=== PATIENT | female | born 1970 | race Caucasian/White ===

== ENCOUNTER → 2016-09-20 | Outpatient (CLI) | payer BC ==
[~2016-09-20] MED LIST: CETI10CA11 PO; LANS30CA17 PO; OXYB5POW MC
--- NOTE | 2016-09-21 00:39 | KCIC ---
PROCEDURE Cervical spine MRI without contrast. HISTORY Sudden onset hand numbness and paresthesia. TECHNIQUE Multiplanar and multi sequence magnetic resonance imaging of the cervical spine was performed without contrast. COMPARISON None. FINDINGS There is slight reversal of cervical lordosis centered at the lower cervical levels. There is no significant listhesis. The vertebral bodies are normal in height. There is mild endplate remodeling at multiple levels, predominately C6 and C7. No suspicious osseous lesion is seen. No spinal cord lesion is seen. At C2-C3, there is a minimal disc bulge. There is no stenosis. At C3-C4, there is a minimal left paracentral to foraminal disc protrusion superimposed on a disc bulge and endplate remodeling. There is no stenosis. At C4-C5, there is a minimal disc bulge. There is no stenosis. At C5-C6, there is a minimal disc bulge. There is no stenosis. At C6-C7, there is a broad-based posterior central to right paracentral disc protrusion superimposed on a disc bulge and endplate remodeling. This slightly flattens the ventral aspect of the spinal cord without significant stenosis. IMPRESSION Multilevel degenerative change within the cervical spine, described above. No significant foraminal or central canal stenosis is seen. Electronically signed by: Reyna Doe (Sep 21, 2016 00:38:09)
== END | disposition home or self-care (01) ==
LOC: KCIC MRI 16:45
PROVIDERS: ATTEND Physical Medicine & Rehabilitation
DX: M50.223 Other cervical disc displacement at C6-C7 level (principal); M47.892 Other spondylosis, cervical region; R20.0 Anesthesia of skin
CPT/HCPCS: 72141

== ENCOUNTER → 2016-09-30 | Outpatient (CLI) | payer BC ==
[2016-09-30 08:34] LABS: CREATININE 0.6 mg/dL (0.6-1.0); GFR 107.6
[2016-09-30 14:32] LABS: RHEUMATOID FACTOR <10.0 IU/mL (0.0-13.9)
== END | disposition home or self-care (01) ==
LOC: LAB 06:03
PROVIDERS: ATTEND Psychiatry & Neurology Neurology
DX: G60.9 Hereditary and idiopathic neuropathy, unspecified (principal)
CPT/HCPCS: 36415; 82550; 82565; 82607; 84443; 84450; 84460; 84520; 85651; 86431

== ENCOUNTER → 2017-09-14 | Outpatient (CLI) | payer BC, OTHER | END | disposition home or self-care (01) | LOC: KCIC MAMMO 10:12 | DX: Z12.31 Encounter for screening mammogram for malignant neoplasm of breast (principal) | CPT/HCPCS: 77063; G0202 ==

== ENCOUNTER → 2018-01-18 | Outpatient (CLI) | payer OTHER, BC ==
[2018-01-18 07:30] LABS: ADD MAN DIFF? NO
[2018-01-18 07:32] LABS: BASO % 1 % (0-3); EOS # 0.2 x10^3/uL (0.0-0.7); EOS % 3 % (0-3); HEMATOCRIT 39.9 % (36.0-47.0); HEMOGLOBIN 13.7 g/dL (12.0-15.5); LYMPH # 2.4 x10^3/uL (1.0-4.8); LYMPH % 35 % (24-48); MEAN CORPUSCULAR HEMOGLOBIN 31 pg (25-35); MEAN CORPUSCULAR HGB CONC 34 g/dL (31-37); MEAN CORPUSCULAR VOLUME 91 fL (79-100); MONO # 0.6 x10^3/uL (0.0-1.1); MONO % 9 % (0-9); NEUT # 3.6 x10^3uL (1.8-7.7); NEUT % 53 % (31-73); PLATELET COUNT 215 x10^3/uL (140-400); RED BLOOD COUNT 4.37 x10^6/uL (3.50-5.40); RED CELL DISTRIBUTION WIDTH 13.7 % (11.5-14.5); WHITE BLOOD COUNT 6.8 x10^3/uL (4.0-11.0)
[2018-01-18 07:47] LABS: ALBUMIN 3.8 g/dL (3.4-5.0); ALK PHOS 64 U/L (46-116); ALT (SGPT) 32 U/L (14-59); ANION GAP 11 (6-14); AST (SGOT) 23 U/L (15-37); BLOOD UREA NITROGEN 19 mg/dL (7-20); BUN/CREATININE RATIO 38 (6-20); CALCIUM 8.7 mg/dL (8.5-10.1); CARBON DIOXIDE 24 mmol/L (21-32); CHLORIDE 104 mmol/L (98-107); CHOLESTEROL 170 mg/dL (0-200); CREATININE 0.5 mg/dL (0.6-1.0); GFR 132.2; GLUCOSE 104 mg/dL (70-99); HDLC 42 mg/dL (40-60); LDLC 116 mg/dL (0-100); NON-HDL CHOLESTEROL 128 mg/dL (0-129); SODIUM 139 mmol/L (136-145); TOTAL BILIRUBIN 0.7 mg/dL (0.2-1.0); TOTAL PROTEIN 7.5 g/dL (6.4-8.2); TRIGLYCERIDES 58 mg/dL (0-150); VLDLC 12 mg/dL (0-40)
[2018-01-18 07:58] LABS: THYROID STIM HORMONE (TSH) 2.011 uIU/mL (0.358-3.74)
[2018-01-18 07:59] LABS: VITAMIN-B12 500 pg/mL (247-911)
[2018-01-18 23:12] LABS: HEMOGLOBIN A1C 5.6 % (4.8-5.6)
[2018-01-21 19:10] LABS: METHYLMALONIC ACID 97 nmol/L (0-378)
== END | disposition home or self-care (01) ==
LOC: LAB 06:40
DX: Z13.1 Encounter for screening for diabetes mellitus (principal); Z13.220 Encounter for screening for lipoid disorders; Z79.899 Other long term (current) drug therapy
CPT/HCPCS: 36415; 80053; 80061; 82607; 83036; 83921; 84443; 85025

== ENCOUNTER → 2018-06-29 | Day surgery (SDC) | payer OTHER, BC ==
[~2018-06-29] MED LIST changes: +ESOM20CA PO; +GABA-587 PO; +IV RINGERS,LACTATED 1000ML 1,000 ML IV SCH; -LANS30CA17 PO; +LANS30CA66 PO; +LIDOCAINE 1% PF 2 ML VIAL. ID PRN; +LIDOCAINE 2% PF 2ML VIAL. ONE; +MELO15TA6 PO; +ONDANSETRON PF 4 MG/2 ML VIAL. IV PRN; +OXYB10TA7 PO; +PROCHLORPERAZINE 10 MG/2 ML VIAL. IV PRN; +PROPOFOL 20 ML IV ONE; +fentaNYL PF VIAL 100 MCG/2 ML VIAL IV PRN
[2018-06-29 07:40] VITALS: BP 136/62
--- NOTE | 2018-06-29 07:42 | HP ---
ADMIT DATE: 06/29/2018 REFERRING PHYSICIAN: Dr. Mariann De La Cruz. REASON: Refractory heartburn. HISTORY OF PRESENT ILLNESS: A 47-year-old female with past medical history significant for anemia, hiatal hernia, as well as osteoarthrosis, status post cholecystectomy, seen with persistent symptoms. She has had increased difficulties despite Nexium 40 mg daily. She does use alcohol infrequently and caffeine but no nicotine, but no dysphagia, odynophagia. Heartburn does awaken her at night, there has been no bleeding. With continued symptoms, requests additional evaluation. PAST MEDICAL HISTORY: Anemia, hiatal hernia, she is 2, para 2, history of colonic polyps, GERD. ALLERGIES: ERYTHROMYCIN, TRAMADOL. MEDICATIONS: Include cetirizine, Nexium, gabapentin, meloxicam, and oxybutynin. FAMILY HISTORY: Significant for colon polyps with her father and hypertension, as well as gallbladder disease. SOCIAL HISTORY: Social drinker, nonsmoker. REVIEW OF SYSTEMS: Per records. PHYSICAL EXAMINATION: GENERAL: Well-nourished, well-developed female. VITAL SIGNS: Temperature is 98.3, pulse 78, respiration is 18. HEENT: Reveals normocephalic and atraumatic head. Pupils and extraocular muscles are not tested. Sclerae anicteric. NECK: Supple. LUNGS: Clear. CARDIOVASCULAR: Reveals S1, S2 without S3, S4 or appreciable murmur. ABDOMEN: Reveals soft abdomen, normoactive bowel sounds without appreciable hepatosplenomegaly. EXTREMITIES: Reveals no cyanosis, clubbing or edema. IMPRESSION AND PLAN: Reflux with intractable symptoms. Differential includes gastroparesis, Varma, ulcer disease secondary to NSAIDs as well as gastroparesis; therefore, recommend upper endoscopy to further assess. Risks and benefits of procedure including risk of hemorrhage and perforation during the operation were discussed. The patient is willing to proceed at this time. CLINTON ESPINOSA MD DR: CHEMA/tarun JOB#: [id number] / [id number]
--- NOTE | 2018-07-03 10:10 | PATHOLOGY ---
[facility] Accession Number: [id number] . 01 Material submitted: . DISTAL ESOPHAGUS BX . 01 Clinical history: . Pre-OP DX: Reflux, bloating Post-OP DX: Rule out Varma's . 02 Diagnosis: Esophageal biopsies, distal esophagus: - Esophagitis with eosinophils. See comment. . (JPM:mml; 07/02/18) QLM/07/02/2018 . 02 Comment: Sections of the distal esophageal biopsy reveal segments of tangentially-oriented hyperplastic squamous esophageal mucosa. There are focally increased intraepithelial eosinophils. The differential diagnosis of esophagitis with eosinophils includes reflux esophagitis, "pill esophagitis" and eosinophilic esophagitis. Focally, there are greater than 20-30 intraepithelial eosinophils per high power field. This finding is suggestive of eosinophilic esophagitis. There is no evidence of Varma's change, dysplasia, or malignancy. . (JPM:mml; 07/02/18) . 02 Electronically signed: . Mynor Conroy MD, Pathologist NPI- [id number] . 01 Gross description: . Received in formalin labeled "Alona Fragaa, distal esophagus BX," are 4 segments of luevano soft tissue measuring 0.9 x 0.5 x 0.2 cm in aggregate dimensions and ranging from 0.2 to 0.4 cm in maximum dimension. The specimen is submitted entirely in cassette A1. (TSD; 06/29/2018) TOB/TOB . 02 Microscopic: . . . 02 Pathologist provided ICD-10: K20.9 . 02 CPT . 769335 Specimen Comment: A courtesy copy of this report has been sent to Specimen Comment: [phone], . Specimen Comment: Report sent to / DR BERRY Performed at: 01 [facility] [address], [place], [place] [id number] MD Lopez Geronimo MD Phone: [phone] Performed at: 02 [facility] [address], [place] [id number] MD Mynor Conroy MD Phone: [phone]
== END | disposition home or self-care (01) ==
LOC: ENDOS 06:22
PROVIDERS: ATTEND Internal Medicine Gastroenterology
DX: K21.0 Gastro-esophageal reflux disease with esophagitis (principal); Z86.010 Personal history of colon polyps; M19.90 Unspecified osteoarthritis, unspecified site; D64.9 Anemia, unspecified; Z90.49 Acquired absence of other specified parts of digestive tract; Z88.1 Allergy status to other antibiotic agents; Z88.6 Allergy status to analgesic agent; Z79.899 Other long term (current) drug therapy; Z82.49 Family history of ischemic heart disease and other diseases of the circulatory system; Z83.71 Family history of colonic polyps; Z83.79 Family history of other diseases of the digestive system; Z72.89 Other problems related to lifestyle
CPT/HCPCS: 43239; 88305; J2001; J2704

== ENCOUNTER → 2019-02-13 | Outpatient (CLI) | payer OTHER, BC ==
[2018-06-29 07:40] VITALS: BP 136/62
[~2019-02-13] MED LIST changes: -GABA-587 PO; +GABA-689 PO; -IV RINGERS,LACTATED 1000ML 1,000 ML IV SCH; -LIDOCAINE 1% PF 2 ML VIAL. ID PRN; -LIDOCAINE 2% PF 2ML VIAL. ONE; -ONDANSETRON PF 4 MG/2 ML VIAL. IV PRN; -PROCHLORPERAZINE 10 MG/2 ML VIAL. IV PRN; -PROPOFOL 20 ML IV ONE; -fentaNYL PF VIAL 100 MCG/2 ML VIAL IV PRN
--- NOTE | 2019-02-13 09:57 | RAD ---
DATE: 02/13/2019 EXAM: MAMMO HARRISON SCREENING BILATERAL HISTORY: Routine screening COMPARISON: 09/14/2017 This study was interpreted with the benefit of Computerized Aided Detection (CAD). Breast Density: HETERO The breast parenchyma is heterogenously dense, which could reduce sensitivity of mammography. Breast parenchyma level C. FINDINGS: 2-D and 3-D tomosynthesis imaging was performed in CC and MLO projections. No new or enlarging breast densities are seen. Benign type calcification is present. No suspicious microcalcifications have developed. IMPRESSION: Stable mammograms without evidence of malignancy. BI-RADS CATEGORY: 2 BENIGN FINDING(S) RECOMMENDED FOLLOW-UP: 12M 12 MONTH FOLLOW-UP PQRS compliance statement: Patient information was entered into a reminder system with a target due date for the next mammogram. Mammography is a sensitive method for finding small breast cancers, but it does not detect them all and is not a substitute for careful clinical examination. A negative mammogram does not negate a clinically suspicious finding and should not result in delay in biopsying a clinically suspicious abnormality. "Our facility is accredited by the [employer] Mammography [employer]."
== END | disposition home or self-care (01) ==
LOC: MAMMO 08:46
PROVIDERS: ATTEND Obstetrics & Gynecology
DX: Z12.31 Encounter for screening mammogram for malignant neoplasm of breast (principal)
CPT/HCPCS: 77063; 77067

== ENCOUNTER → 2020-02-19 | Outpatient (CLI) | payer OTHER, BC ==
[2018-06-29 07:40] VITALS: BP 136/62
--- NOTE | 2020-02-19 15:35 | RAD ---
DATE: 02/19/2020 2:56 PM EXAM: MAMMO HARRISON SCREENING BILATERAL HISTORY: Screening COMPARISON: 09/14/2017 Bilateral CC and MLO views of the breasts were performed. Bilateral breast tomosynthesis was performed in CC and MLO projections. This study was interpreted with the benefit of Computerized Aided Detection (CAD). FINDINGS: Breast Density: HETERO The breast parenchyma Is heterogeneously dense, which could reduce sensitivity of mammography. Breast parenchyma level C No suspicious masses, microcalcifications or architectural distortion is present to suggest malignancy in either breast. The visualized axillae are unremarkable. IMPRESSION: No mammographic evidence of malignancy. BI-RADS CATEGORY: 1 NEGATIVE RECOMMENDED FOLLOW-UP: 12M 12 MONTH FOLLOW-UP Annual screening mammography is recommended, unless clinically indicated sooner based on symptoms or change in physical exam. PQRS compliance statement: Patient information was entered into a reminder system with a target due date 02/19/2021 for the next mammogram. Mammography is a sensitive method for finding small breast cancers, but it does not detect them all and is not a substitute for careful clinical examination. A negative mammogram does not negate a clinically suspicious finding and should not result in delay in biopsying a clinically suspicious abnormality. "Our facility is accredited by the [employer] Mammography [employer]."
== END ==
LOC: MAMMO 14:12
PROVIDERS: ATTEND Obstetrics & Gynecology
DX: Z12.31 Encounter for screening mammogram for malignant neoplasm of breast (principal)
CPT/HCPCS: 77063; 77067

== ENCOUNTER → 2020-09-30 | Outpatient (CLI) | payer OTHER, BC ==
[2018-06-29 07:40] VITALS: BP 136/62
== END ==
LOC: SPEC 15:16
PROVIDERS: ATTEND Obstetrics & Gynecology
DX: Z01.419 Encounter for gynecological examination (general) (routine) without abnormal findings (principal)
CPT/HCPCS: 88175

== ENCOUNTER → 2021-04-20 | Outpatient (CLI) | payer OTHER, BC ==
[2018-06-29 07:40] VITALS: BP 136/62
--- NOTE | 2021-04-20 15:13 | RAD ---
EXAM: Right upper extremity sonogram. HISTORY: Palpable lump. TECHNIQUE: Sonographic imaging of the right upper extremity was performed. COMPARISON: None. FINDINGS: There is a circumscribed nonvascular nodule isoechoic to fat within the right upper extremi ty at the site of palpable concern measuring 2.2 cm in maximum dimension. The imaging appearance favo rs a lipoma. IMPRESSION: 2.2 cm suspected benign lipoma within the right upper arm soft tissues at the site of pal pable concern. Continued clinical follow-up of palpable abnormalities is recommended. Electronically signed by: Reyna Doe MD (04/20/2021 3:11 PM) [id number]
== END ==
LOC: US 14:19
PROVIDERS: ATTEND Nurse Practitioner Family
DX: R22.31 Localized swelling, mass and lump, right upper limb (principal)
CPT/HCPCS: 76881

== ENCOUNTER → 2021-04-20 | Outpatient (CLI) | payer OTHER, BC ==
[2018-06-29 07:40] VITALS: BP 136/62
--- NOTE | 2021-04-20 15:58 | RAD ---
EXAM: Bilateral digital screening mammogram with tomosynthesis. HISTORY: 50-year-old female presents for screening mammography. TECHNIQUE: Full-field digital craniocaudal and mediolateral oblique 2D and 3D tomosynthesis images of both breasts are obtained for evaluation. Computer aided detection was applied. COMPARISON: 02/19/2020 BREAST PARENCHYMAL DENSITY: Level C - Heterogeneously dense. FINDINGS: There is no new suspicious mass, microcalcification or region of architectural distortion. IMPRESSION: BI-RADS Category 2: Benign finding(s). RECOMMENDATION: Annual mammography is recommended. If your mammogram demonstrates that you have dense breast tissue, which could hide abnormalities, and if you have other risk factors for breast cancer that have been identified, you might benefit from s upplemental screening tests that may be suggested by your ordering physician. Dense breast tissue, i n and of itself, is a relatively common condition. This information is not provided to cause undue c oncern, but rather to raise your awareness and to promote discussion with your physician regarding th e presence of other risk factors, in addition to dense breast tissue. A report of your mammography re sults will be sent to you and your physician. You should contact your physician if you have any ques tions or concerns regarding this report. Mammography is a sensitive method for finding small breast cancers, but it does not detect them all a nd is not a substitute for careful clinical examination. A negative mammogram does not negate a clin ically suspicious finding and should not result in delay in biopsying a clinically suspicious abnorma lity. PQRS compliance statement - Patient information was entered into a reminder system with a target due date for the next mammogram. "Our facility is accredited by the [employer] Mammography Program." Electronically signed by: Reyna Doe MD (04/20/2021 3:55 PM) [id number]
== END ==
LOC: MAMMO 14:14
PROVIDERS: ATTEND Obstetrics & Gynecology
DX: Z12.31 Encounter for screening mammogram for malignant neoplasm of breast (principal)
CPT/HCPCS: 77067